=== PATIENT | male | born 1950 | race Caucasian/White ===

== ENCOUNTER → 2021-11-21 | Emergency (ER) | payer MEDICARE ==
[~2021-11-21] MED LIST: AMARYL 2MG TABLE2 MG PO; ANDRODERM1 EAC1 TD; ASPIRIN CHEWABL81 MG PO; HYDROCHLOROTHIA25 MG PO; HYDROCODON-ACE1 EAC4 PO; IBUPROFEN200 M1 PO; LIPITOR TAB 2020 MG PO; LISINOPRIL20 MG PO; MAGNESIUM400 MG PO; MELATONIN5 M2 PO; MULTIVITAMINS1 EAC1 PO; NORVASC 5 MG TAB5 MG PO; PERCOCET 5-3251 EACH PO; POTASSIUM99 M1 PO; SINGULAIR10 MG PO; URINOZINC PROS1 EACH PO; ZYLOPRIM 100 M100 MG PO; [UNRECOGNIZED DRUG - OTHER] PO
[2021-11-21 13:49] LABS: HEMOGLOBIN 15.8 gm/dl (14.0-17.5); RED BLOOD COUNT 5.09 M/UL (4.20-5.50)
== END | disposition home or self-care (01) ==
LOC: ER1 13:07
PROVIDERS: Physician Assistant
DX: U07.1 COVID-19 (principal); E87.6 Hypokalemia; E86.0 Dehydration; I10 Essential (primary) hypertension; E11.9 Type 2 diabetes mellitus without complications
CPT/HCPCS: 0240U; 71045; 80053; 85025; 99284; J7030

== ENCOUNTER 2021-11-29 12:49 | Emergency (ER) | payer MEDICARE ==
[2021-11-29 13:54] LABS: RED BLOOD COUNT 4.85 M/UL (4.20-5.50); WHITE BLOOD COUNT 13.7 K/UL (4.5-11.0)
[2021-11-29 14:46] LABS: BUN/CREATININE RATIO 14 (0-10)
[2021-11-29] MEDS ORDERED: CIPRO500 MG PO (17:08)
== END 2021-11-29 17:25 | disposition home or self-care (01) ==
LOC: ER1 12:49
PROVIDERS: Emergency Medicine
DX: U07.1 COVID-19 (principal); N39.0 Urinary tract infection, site not specified; E11.9 Type 2 diabetes mellitus without complications; I10 Essential (primary) hypertension
CPT/HCPCS: 71045; 80053; 81001; 82550; 82553; 83874; 84439; 84443; 84484; 85025; 85610; 85730; 87040; 87077; 87086; 87186; 96374; 99284; J0696

== ENCOUNTER → 2021-12-23 | Outpatient (CLI) | payer MEDICARE ==
[~2021-12-23] MED LIST changes: +CIPRO500 MG PO
== END ==
LOC: EXRD 10:42
DX: I73.9 Peripheral vascular disease, unspecified (principal); U09.9 Post COVID-19 condition, unspecified
CPT/HCPCS: 93925